=== PATIENT | male | born 2000 | race Two or more races ===

== ENCOUNTER 2025-03-31 13:17 | Outpatient (CLI) | payer MEDICAID ==
[2025-03-31 13:47] LABS: Urine Protein, UAD Negative (Negative)
[2025-03-31 14:21] LABS: Follicle Stimulating Hormone 1.69 IU/L (1.4-18.1)
== END 2025-03-31 17:00 | disposition home or self-care (01) ==
LOC: LAB 13:17
PROVIDERS: ATTEND Urology
DX: E29.1 Testicular hypofunction (principal)
CPT/HCPCS: 36415; 81001; 83001; 84146; 84270; 84403; 87086